=== PATIENT | female | born 1975 | race Caucasian/White ===

== ENCOUNTER 2017-08-29 11:08 | Emergency (ER) | payer OTHER ==
[2017-08-29 11:14] VITALS: RESP 18
[2017-08-29] MEDS ORDERED: IBUPROFEN 600 MG TAB PO ONE ×2 (11:36→11:40)
--- NOTE | 2017-08-29 13:17 | EDPHY ---
H & P Stated Complaint: sinus pain since yesterday morning. - Personal History Current Tetanus Diphtheria and Acellular Pertussis (TDAP): Yes - Medical/Surgical History Hx Asthma: No Hx Chronic Respiratory Disease: No Hx Diabetes: No Hx Cardiac Disease: No Hx Renal Disease: No Hx Cirrhosis: No Hx Alcoholism: No Hx HIV/AIDS: No Hx Splenectomy or Spleen Trauma: No Other PMH: Kidney stones - Social History Smoking Status: Never smoked Time Seen by Provider: 08/29/17 12:32 HPI/ROS: CHIEF COMPLAINT: "I have a sinus infection " HISTORY OF PRESENT ILLNESS: 42-year-old immunocompetent female traveling from [place] to [place], states that she was diagnosed with croup 1 week ago in [place] and has had URI symptoms ever since however development of sinus congestion, maxillary sinus pain the past 24 hr. No fever no chills no nausea no vomiting. No chest pain. No influenza vaccination. No nuchal rigidity. PRIMARY CARE PROVIDER: REVIEW OF SYSTEMS: A ten point review of systems was performed and is negative with the exception of the items mentioned in the HPI PAST MEDICAL & SURGICAL HISTORY: No pertinent medical or surgical history SOCIAL HISTORY: Nonsmoker. PHYSICAL EXAM (Prior to examination, patient consented to physical exam, hands were washed and my usual and customary physical exam procedures followed) 1) GENERAL: Well-developed, well-nourished, alert and oriented. Appears to be in no acute distress. 2) HEAD: Normocephalic, atraumatic 3) HEENT: Pupils equal, round, reactive to light bilaterally. Sclera anicteric. Nasopharynx, oropharynx, clear, no lesions. Tender to percussion bilateral maxillary sinus Ears bilaterally with normal tympanic membranes. 4) NECK: Full range of motion, no meningeal signs. 5) LUNGS: Clear auscultation bilaterally, no wheezes, no rhonchi, no retractions. 6) HEART: Regular rate and rhythm, no murmur, no heave, no gallop. 7) ABDOMEN: No guarding, no rebound, no focal tenderness, negative McBurney's, negative Sherman's, negative Rovsing's, negative peritoneal sign, 8) MUSCULOSKELETAL: Moving all extremities, no focal areas of tenderness, no obvious trauma. No peripheral edema or discoloration. 9) BACK: No CVA tenderness, no midline vertebral tenderness, no fluctuance, no step-off, no obvious trauma, no visual or palpable abnormality. 10) SKIN: No rash, no petechiae. 11) Psychiatric: Patient is oriented X 3, there is no agitation. DIFFERENTIAL DIAGNOSIS: In no particular include but limited to influenza, sinusitis, bronchitis, meningitis (Ari Padilla) Constitutional: Initial Vital Signs Temperature (C) 36.6 C 08/29/17 11:11 Heart Rate 100 08/29/17 11:11 Respiratory Rate 18 08/29/17 11:11 Blood Pressure 117/77 08/29/17 11:11 O2 Sat (%) 95 08/29/17 11:11 O2 Delivery Mode Room Air Allergies/Adverse Reactions: Sulfa (Sulfonamide Antibiotics) Allergy (Verified 08/29/17 11:15) Home Medications: Medication Instructions Recorded AZITHROMYCIN [Z-PACK] 500 mg PO DAILY #1 packet 08/29/17 Pseudoephedrine HCl [Sudafed 120 mg PO BID #14 tablet.er 08/29/17 12-Hour] Medical Decision Making ED Course/Re-evaluation: Patient is not appear septic. Doubt meningitis. Will treat with antibiotics for acute sinusitis. She feels comfortable with this discharge plan. Given usual and customary discharge precautions instructions. Care of patient under supervision of secondary supervising physician Dr Mock . (Ari Padilla) The patient was evaluated and managed by the physician speech pathology assistant. I have reviewed this chart and I agree with the findings and plan of care as documented , as indicated by my signature. I am the secondary supervising physician. ( Beatriz Mock) - Data Points Medications Given: Discontinued Medications Ibuprofen (Motrin) 600 mg PO EDNOW ONE Stop: 08/29/17 11:37 Last Admin: 08/29/17 11:39 Dose: 600 mg Departure - Departure Disposition: Home, Routine, Self-Care Clinical Impression: Sinusitis Condition: Good Instructions: Sinusitis (ED) Additional Instructions: Return to the emergency department immediately for change in breathing habits, change in voice, change in swallowing habits, change in mental status, or any other symptoms that concern you. Referrals: Megan Krishnamurthy MD [Medical Doctor] - 5-7 days, call for appt. Prescriptions: AZITHROMYCIN [Z-PACK] 500 mg PO DAILY #1 packet Pseudoephedrine HCl [Sudafed 12-Hour] 120 mg PO BID #14 tablet.er
[2017-08-29 13:45] VITALS: BP 105/63; PULSE 74; TEMP 97.5; O2SAT 98
== END 2017-08-29 13:44 | disposition home or self-care (01) ==
DX: J32.9 Chronic sinusitis, unspecified (principal)